=== PATIENT | female | born 1945 | race Caucasian/White ===

== ENCOUNTER 2019-01-25 09:40 | Day surgery (SDC) | payer MEDICARE ==
[~2019-01-25] VITALS: Ht 157.5 cm; Wt 57.6 kg
[~2019-01-25 09:40] MED LIST: BAYER CHEWABLE81 MG PO; CHLORACON PO; CRANBERRY VIT C PO; CYANOCOBAL1000 MCG/4 SC; EZFE 200200 MG PO; FENTANYL PATCH TRANSDERM; HYDROCODON-ACE1 EA10 PO; MAGNESIUM OXID500 MG PO; PLAVIX75 MG PO; PROTONIX20 MG PO; SODIUM BICARBO325 MG PO; SUPER B COMPLEX PO; VITAMIN B-121000 MCG PO; VITAMIN D250000 UNIT PO; [UNRECOGNIZED DRUG - OTHER] PO
[2019-01-25] MEDS ORDERED: FER-IN-SOL DROP50 ML (10:42)
[2019-01-25 10:58] VITALS: BP 122/59; Ht 157.5 cm; Wt 57.6 kg
[2019-01-25 11:46] LABS: HEMOGLOBIN 12.2 g/dL (12-16); MCH 32.2 pg (26.0-34.0); MCHC 33.9 g/dL (31.0-37.0); MEAN PLATELET VOLUME 9.8 fL (7.4-10.4); RBC 3.79 10x6/uL (4.00-5.40); RDW 13.4 % (11.5-14.5); WBC 9.1 10x3/uL (4.8-10.8)
[2019-01-25 11:52] LABS: APTT 36.7 SECONDS (22.8-39.4); INR 1.06 (0.85-1.17); PROTIME 13.3 SECONDS (11.6-15.0)
[2019-01-25] MEDS ORDERED: DURAGESIC1 PATCH .2 TRANSDERM (18:36)
--- NOTE | 2019-01-25 18:45 | NUR ---
REC'D FROM RR. FAMILY AT BEDSIDE. LLE PUT ON PILLOW. ICE PACK IN USE. CAN WIGGLE TOES BUT IS NUMB TO TOUCH. DRINKING SODA.
--- NOTE | 2019-01-25 19:15 | NUR ---
DRINKING SODA. WIGGLES TOES BUT FOOT IS NUMB. ELEVATED ON PILLOW WITH ICE PACK IN PLACE.
--- NOTE | 2019-01-25 19:55 | NUR ---
LEFT POWER PORT FLUSHED AND NEEDLE REMOVED. WRITTEN AND VERBAL DC INST. GIVEN TO PT ALONG WITH RX. VERBALIZED UNDERSTANDING.
--- NOTE | 2019-01-25 20:20 | NUR ---
DC'D HOME WITH FAMILY VIA PRIVATE VEHICLE. STABLE AT TIME OF DC.
== END 2019-01-25 20:20 | disposition home or self-care (01) ==
LOC: D.OPS 09:40 → D.PAN 12:00 → D.OPS 20:20
PROVIDERS: Anesthesiology; ATTEND Podiatrist Foot & Ankle Surgery
DX: S92.002A Unspecified fracture of left calcaneus, initial encounter for closed fracture (principal); S96.812A Strain of other specified muscles and tendons at ankle and foot level, left foot, initial encounter; X58.XXXA Exposure to other specified factors, initial encounter; M81.0 Age-related osteoporosis without current pathological fracture; Z01.812 Encounter for preprocedural laboratory examination

== ENCOUNTER 2019-02-07 15:39 | Inpatient (IN) | payer MEDICARE ==
[~2019-02-07] VITALS: Ht 157.5 cm; Wt 56.7 kg
[~2019-02-07 15:39] MED LIST changes: +DURAGESIC1 PATCH .2 TRANSDERM; +FER-IN-SOL DROP50 ML
[2019-02-07 18:31] VITALS: BP 126/61; BMI 22.9
[2019-02-07 18:46] VITALS: BP 126/61
--- NOTE | 2019-02-07 19:20 | NUR ---
RCV`D PT. PT SITTING UP IN BED WATCHING TV. BREATHING EVEN AND NONLABORED, NO S/S OF DISTRESS. ACCESSED PORT TO HANG IV FLUIDS AND ABX. ILEOSTOMY EMPTIED. ASSISTED ONTO THE BEDPAN AND BACK OFF. PLACED ONTO JOSU[place] MAT AND INITIATED ALARM. PT DENIES ANY NEEDS AT THIS TIME. BED LOW, CALL LIGHT IN REACH, RAILS UP X 2. WILL CONTINUE TO MONITOR.
[2019-02-07 19:31] LABS: BASOPHILS 0.5 % (0-2); HEMATOCRIT 27.9 % (36.0-48.0); HEMOGLOBIN 9.2 g/dL (12-16); IMMATURE GRANULOCYTES 0.1 % (0-5); LYMPHOCYTES 16.3 % (15-50); MCH 31.8 pg (26.0-34.0); MCV 96.5 fL (80.0-100.0); MEAN PLATELET VOLUME 9.2 fL (7.4-10.4); MONOCYTES 8.7 % (2-11); NEUTROPHILS 73.4 % (40-80); PLATELET COUNT 257 10x3/uL (130-400); RBC 2.89 10x6/uL (4.00-5.40); RDW 13.3 % (11.5-14.5); WBC 9.5 10x3/uL (4.8-10.8)
[2019-02-07 19:44] LABS: ANION GAP 10.1 mmol/L (8-16); CALCIUM 8.6 mg/dL (8.5-10.1); CARBON DIOXIDE 26.4 mmol/L (21.0-32.0); CREATININE - SERUM 2.1 mg/dL (0.6-1.3); MAGNESIUM - SERUM 2.1 mg/dL (1.8-2.4); POTASSIUM - SERUM 3.5 mmol/L (3.5-5.1)
[2019-02-07 22:19] VITALS: BP 108/39
--- NOTE | 2019-02-07 23:30 | NUR ---
PT RESTING IN BED WITH EYES CLOSED, EASILY AROUSED TO SPEECH. BP IS CURRENTLY 84/36, PT STATES THIS IS VERY NORMAL FOR IT TO GO THAT LOW. CALLED LYNDA DANIELS TO REPORT FINDING HE ADVISED ME TO CHANGE HER FLUIDS TO D5 1/2NS AT 50ML/HR AND RECHECK IN A COUPLE OF HOURS. PT DENIES ANY NEEDS. BED LOW, CALL LIGHT IN REACH, RAILS UP X 2. WILL CONTINUE TO MONITOR.
[2019-02-08] VITALS (7 sets, daily range): BP systolic 84–160; BP diastolic 30–98; Ht 157.5 cm; Wt 56.7 kg
--- NOTE | 2019-02-08 02:00 | NUR ---
RECHECK BLOOD PRESSURE IS CURRENTLY 105/49. ASSISTED PT ON BEDPAN AND BACK OFF. PT EMPTIED HER OWN ILEOSTOMY BAG, AND DENIES ANY NEEDS AT THIS TIME. BED LOW, CALL LIGHT IN REACH, RAILS UP X 2. WILL CONTINUE TO MONITOR.
--- NOTE | 2019-02-08 04:46 | NUR ---
PT RESTING IN BED WITH EYES CLOSED, EASILY AROUSED TO SPEECH. COMPLETED MORNING BLOOD DRAW VIA PT PORT FOR LAB. NO S/S OF DISTRESS, DENIES NEEDS.
[2019-02-08 07:12] LABS: BASOPHILS 0.2 % (0-2); HEMATOCRIT 23.8 % (36.0-48.0); HEMOGLOBIN 7.9 g/dL (12-16); IMMATURE GRANULOCYTES 0.1 % (0-5); LYMPHOCYTES 13.1 % (15-50); MCH 32.1 pg (26.0-34.0); MCHC 33.2 g/dL (31.0-37.0); MCV 96.7 fL (80.0-100.0); MEAN PLATELET VOLUME 9.4 fL (7.4-10.4); MONOCYTES 7.9 % (2-11); NEUTROPHILS 77.7 % (40-80); PLATELET COUNT 217 10x3/uL (130-400); RBC 2.46 10x6/uL (4.00-5.40); RDW 13.6 % (11.5-14.5); WBC 8.1 10x3/uL (4.8-10.8)
[2019-02-08 07:20] LABS: APTT 39.4 SECONDS (22.8-39.4); INR 1.19 (0.85-1.17); PROTIME 14.6 SECONDS (11.6-15.0)
[2019-02-08 07:31] LABS: % SATURATION 9 % (15-55); IRON 18 ug/dl (35-150); TOTAL IRON BIND CAPACITY 190 ug/dl (260-445); UNSAT IRON BIND CAPACITY 172 ug/dl (150-375)
[2019-02-08 07:57] LABS: CALC OSMOLALITY 290 mosm/kg (275-300); CALCIUM 7.8 mg/dL (8.5-10.1); CARBON DIOXIDE 22.7 mmol/L (21.0-32.0); CHLORIDE - SERUM 110 mmol/L (98-107); CREATININE - SERUM 1.9 mg/dL (0.6-1.3); FERRITIN 671 ng/mL (3-244); GLUCOSE 96 mg/dL (74-106); MAGNESIUM - SERUM 1.8 mg/dL (1.8-2.4); POTASSIUM - SERUM 3.5 mmol/L (3.5-5.1); SODIUM 143 mmol/L (136-145); UREA NITROGEN 29 mg/dL (7-18); eGFR NON AFRICAN AMERICAN 27 mL/min (90-120)
--- NOTE | 2019-02-08 08:00 | NUR ---
ASSESSMENT PER FLOW SHEET. PT IS WITHOUT DISTRESS.MONITOR FOR NEEDS.FALL PREVENTION IN PLACE.
--- NOTE | 2019-02-08 08:02 | NUR ---
IV TENDER WITH SOME SWELLING NOTED. IV DCD WITH CATH TIP INTACT PER PT REQUEST. PT GOING OUTSIDE WITH VIA WHEELCHAIR.
--- NOTE | 2019-02-08 18:39 | NUR ---
REMAINS WITHOUT CHANGE.CONT PLAN OF CARE
[2019-02-09 01:30] VITALS: BP 106/45
[2019-02-09 06:00] VITALS: BP 106/50
--- NOTE | 2019-02-09 07:00 | NUR ---
PT SITTING UP IN BED. NO S/S OF ACUTE DISTRESS. CL IN PLACE.
[2019-02-09 07:15] LABS: ANION GAP 12.1 mmol/L (8-16); CALCIUM 7.9 mg/dL (8.5-10.1); CARBON DIOXIDE 22.5 mmol/L (21.0-32.0); CREATININE - SERUM 1.9 mg/dL (0.6-1.3); MAGNESIUM - SERUM 1.6 mg/dL (1.8-2.4); PHOSPHOROUS 2.9 mg/dL (2.5-4.9); POTASSIUM - SERUM 3.6 mmol/L (3.5-5.1)
[2019-02-09 07:17] LABS: BASOPHILS 0.3 % (0-2); EOSINOPHILS 1.6 % (0-7); HEMATOCRIT 23.1 % (36.0-48.0); HEMOGLOBIN 7.7 g/dL (12-16); IMMATURE GRANULOCYTES 0.3 % (0-5); LYMPHOCYTES 15.5 % (15-50); MCH 32.5 pg (26.0-34.0); MCHC 33.3 g/dL (31.0-37.0); MCV 97.5 fL (80.0-100.0); MEAN PLATELET VOLUME 9.5 fL (7.4-10.4); MONOCYTES 6.2 % (2-11); NEUTROPHILS 76.1 % (40-80); PLATELET COUNT 193 10x3/uL (130-400); RBC 2.37 10x6/uL (4.00-5.40); RDW 13.8 % (11.5-14.5)
[2019-02-09 08:24] VITALS: BP 103/47
[2019-02-09 13:40] VITALS: BP 117/40
--- NOTE | 2019-02-09 14:24 | NUR ---
CALLED [facility] AND THEY ARE"WORKING ON IT NOW".
[2019-02-09 16:45] VITALS: BP 100/40
--- NOTE | 2019-02-09 17:21 | NUR ---
PT RECIEVING PRBC. NO S/S OF ACUTE DISTRESS. NO S/S OF ALLERGIC REACTION. CL IN PLACE.
[2019-02-09 20:07] VITALS: BP 91/44
[2019-02-10 04:00] VITALS: BP 108/45
[2019-02-10 08:01] LABS: ANION GAP 14.1 mmol/L (8-16); CALCIUM 7.9 mg/dL (8.5-10.1); CARBON DIOXIDE 19.4 mmol/L (21.0-32.0); CREATININE - SERUM 1.7 mg/dL (0.6-1.3); MAGNESIUM - SERUM 1.5 mg/dL (1.8-2.4); POTASSIUM - SERUM 3.5 mmol/L (3.5-5.1)
[2019-02-10 08:46] LABS: BASOPHILS 0.3 % (0-2); IMMATURE GRANULOCYTES 0.3 % (0-5); LYMPHOCYTES 18.1 % (15-50); MCH 30.8 pg (26.0-34.0); MCHC 33.6 g/dL (31.0-37.0); MEAN PLATELET VOLUME 9.7 fL (7.4-10.4); MONOCYTES 7.9 % (2-11); NEUTROPHILS 71.4 % (40-80); PLATELET COUNT 218 10x3/uL (130-400); RDW 15.7 % (11.5-14.5); WBC 7.6 10x3/uL (4.8-10.8)
[2019-02-10 08:51] LABS: HEMATOCRIT 31.8 % (36.0-48.0); HEMOGLOBIN 10.7 g/dL (12-16); MCV 91.6 fL (80.0-100.0); RBC 3.47 10x6/uL (4.00-5.40)
[2019-02-10 10:25] VITALS: BP 111/72
[2019-02-10] MEDS ORDERED: LEVOFLOXACIN500 MG PO (12:39)
[2019-02-10 13:14] VITALS: BP 140/65
== END 2019-02-10 16:26 | disposition home or self-care (01) | DRG 863 ==
LOC: D.MS 15:39 → D.SDCHOLD 15:39 → D.MS 17:08
PROVIDERS: Family Medicine; ADMIT Podiatrist Foot & Ankle Surgery; ATTEND Podiatrist Foot & Ankle Surgery
DX: T81.42XA Infection following a procedure, deep incisional surgical site, initial encounter (principal); T81.31XA Disruption of external operation (surgical) wound, not elsewhere classified, initial encounter; L03.116 Cellulitis of left lower limb; F17.213 Nicotine dependence, cigarettes, with withdrawal; I70.203 Unspecified atherosclerosis of native arteries of extremities, bilateral legs